=== PATIENT | male | born 1980 | race Caucasian/White ===

== ENCOUNTER 2020-04-21 18:14 | Emergency (ER) | payer OTHER ==
[~2020-04-21] VITALS: Ht 182.9 cm; Wt 104.3 kg
[2020-04-21 18:17] VITALS: BP 147/102
--- NOTE | 2020-04-21 18:29 | NUR ---
SEEN AND EXAMINED BY MINO SCHMID
--- NOTE | 2020-04-21 18:38 | NUR ---
TECH AT BEDSIDE FOR US.
== END 2020-04-21 19:24 | disposition home or self-care (01) ==
LOC: ER 18:17
DX: L72.3 Sebaceous cyst (principal)
CPT/HCPCS: 76882